=== PATIENT | female | born 1960 | race Caucasian/White ===

== ENCOUNTER 2023-11-12 14:10 | Emergency (ER) | payer MEDICAID ==
[~2023-11-12] VITALS: Ht 165.1 cm; Wt 82.0 kg
[2023-11-12 14:20] VITALS: BP 112/70; PULSE 83; TEMP 98.1; O2SAT 98
[2023-11-12] MEDS ORDERED: SYNTHROID (14:20)
[2023-11-12 14:45] VITALS: RESP 20
[2023-11-12] MEDS ORDERED: HYDROCODONE/ACETAMINOPHEN 10/325MG TABLET PO ONE (14:45)
[2023-11-12] MEDS ORDERED: IBUP-2029 MT (18:19)
== END 2023-11-12 19:05 | disposition home or self-care (01) ==
LOC: ER 14:10
DX: S00.81XA Abrasion of other part of head, initial encounter (principal); E03.9 Hypothyroidism, unspecified; W10.1XXA Fall (on)(from) sidewalk curb, initial encounter; Y93.89 Activity, other specified; Y92.89 Other specified places as the place of occurrence of the external cause; Y99.8 Other external cause status
CPT/HCPCS: 73562; 99283